=== PATIENT | male | born 1975 | race Caucasian/White ===

== ENCOUNTER 2018-12-26 20:21 | Inpatient (IN) ==
[2018-12-26 20:54] LABS: BILIRUBIN URINE NEGATIVE (NEGATIVE); BLOOD URINE 2+ (NEGATIVE); CLARITY CLEAR (CLEAR); COLOR YELLOW; GLUCOSE URINE NEGATIVE (NEGATIVE); KETONE URINE 3+(Large) mg/dL (NEGATIVE); LEUKOCYTES URINE TRACE (NEGATIVE); NITRITE URINE NEGATIVE (NEGATIVE); PROTEIN URINE 1+(30 mg/dL) mg/dL (NEGATIVE); SP GRAVITY URINE 1.015; UROBILINOGEN URINE NORMAL
[2018-12-26 21:09] LABS: URINE BACTERIA NEGATIVE /HFP; URINE EPITHELIAL CELLS <10 /HPF (<10); URINE RBC <10 /HPF (<10); URINE WBC <10 /HPF (<10)
[2018-12-26 21:10] LABS: URINE SOURCE CLEAN CATCH
[2018-12-26 21:13] LABS: UR AMPHETAMINES QUAL NONE DETECTED (NONE DETECT); UR BARBITUATES QUAL NONE DETECTED (NONE DETECT); UR BENZODIAZEPIN QUAL NONE DETECTED (NONE DETECT); UR CANNABINOIDS QUAL NONE DETECTED (NONE DETECT); UR COCAINE QUAL NONE DETECTED (NONE DETECT); UR METHADONE QUAL NONE DETECTED (NONE DETECT); UR METHAMPHETAMINE QUAL NONE DETECTED (NONE DETECT); UR OPIATES QUAL NONE DETECTED (NONE DETECT); UR OXYCODONE QUAL NONE DETECTED (NONE DETECT); UR PCP QUAL NONE DETECTED (NONE DETECT); UR PROPOXYPHENE QUAL NONE DETECTED (NONE DETECT); UR TCA QUAL NONE DETECTED (NONE DETECT)
--- NOTE | 2018-12-26 21:24 | PROVIDER DOCUMENTATION ---
HPI-Psychological Disorder - General Chief Complaint: Psych Stated Complaint: SI Time Seen by Provider: 12/26/18 21:12 Allergies/Adverse Reactions: Patient Allergies Allergy/AdvReac Type Severity Reaction Status Date / Time Penicillins Allergy Intermediate HIVES Verified 03/13/15 14:06 Home Medications: Home Medication List Medication Instructions Recorded Confirmed Last Taken Type Quetiapine Fumarate [Seroquel] 300 mg PO HS 08/25/18 12/26/18 08/21/18 16:00 History 300mg po Duloxetine [Cymbalta] 60 mg PO QAM #30 cap 08/29/18 12/26/18 Unknown Rx Fluticasone 50 Mcg Nasal [place] 2 spray PARMJIT BID #1 bottle 08/29/18 12/26/18 Unknown Rx [Flonase] Gabapentin [Neurontin] 300 mg PO BID #60 cap 08/29/18 12/26/18 Unknown Rx Lamotrigine [Lamictal] 150 mg PO BID #90 tab 08/29/18 12/26/18 Unknown Rx Metoprolol [Lopressor] 50 mg PO BID #60 tab 08/29/18 12/26/18 Unknown Rx Pantoprazole [Protonix] 40 mg PO DAILY@0700 #30 tab 08/29/18 12/26/18 Unknown Rx Aspirin 1 tab PO DAILY 12/26/18 12/26/18 Unknown History Buspirone HCl 1 tab PO BID 12/26/18 12/26/18 Unknown History Escitalopram [Lexapro] 1 tab PO DAILY 12/26/18 12/26/18 Unknown History Propranolol [Inderal] 20 mg PO BID 12/26/18 12/26/18 Unknown History Quetiapine [Seroquel] 200 mg PO QHS 12/26/18 12/26/18 Unknown History - History of Present Illness-Psych Nature of Presenting Problem: Pt comes to the Er today tearful and upset saying that he wants to kill himself with no specific plan. Pt admits that he hasnt been on his bipolar meds for the past week because he was feeling well. Pt is also upset because his partner told him he was HIV positive 2 weeks ago. Onset/Duration: reports: 2 days ago Timing: reports: still present Severity: reports: moderate Situational problems related to:: reports: significant other Psychiatric Complaints: reports: anxiety, depressed, impaired concentration, suicidal ideation Substance Use: reports: denies Previous psych related hospitalizations?: Yes Patient arrived by:: private car Similar Symptoms Previously?: Yes Recently seen or treated by another doctor?: No - Suicidal Ideation Suicide Risk Assessment: male sex, bi-polar Clinician's estimation of suicide risk?: high risk Review of Systems - Adult - REVIEW OF SYSTEMS - ADULT Constitutional: reports: no symptoms reported, see HPI Eyes: reports: no symptoms reported, see HPI Ears, Nose, Mouth & Throat: reports: no symptoms reported, see HPI Cardiovascular: reports: no symptoms reported, see HPI Respiratory: reports: no symptoms reported, see HPI Gastrointestinal: reports: no symptoms reported, see HPI Genitourinary: reports: no symptoms reported, see HPI Musculoskeletal: reports: no symptoms reported, see HPI Integumentary: reports: no symptoms reported, see HPI Neurological: reports: no symptoms reported, see HPI Psychiatric: reports: anxiety, anti-depressant use, depression, suicidal thoughts Endocrine: reports: no symptoms reported, see HPI Hematologic/Lymphatic: reports: no symptoms reported, see HPI Allergic/Immunologic: reports: no symptoms reported, see HPI All Other Systems: Reviewed and Negative Past History - Adult - PAST MEDICAL HISTORY-ADULT Review of Records: reports: Nursing Assessment Review, Medications Reviewed, Social history reviewed & non-contributory. Major Childhood Illnesses: reports: denies history Cardiovascular: reports: HTN Respiratory: reports: denies history Gastrointestinal: reports: Crohn's, GERD Obstetrical/Gynecological: reports: denies history Genitourinary: reports: denies history Musculoskeletal: reports: denies history Neurological: reports: denies history Psychiatric: reports: anxiety, bipolar, psychiatric problems, suicide attempt Endocrine/Immune: reports: denies history Other Conditions: reports: denies history - PRIOR SURGERIES/PROCEDURES Surgical/Procedure History: reports: reviewed, not pertinent, other (cyst removal) - IMMUNIZATION STATUS Childhood Immunizations: See Nurse Assessment Flu Vaccine: See Nurse Assessment - FAMILY HISTORY Family History: reviewed, not pertinent Physical Exam-Psych Focus - Physical Exam-Psych Initial Vital Signs Reviewed: Yes Appearance: anxious, impaired insight Neurological: alert, oriented x 3, anxious, depressed affect Behavior/Eye Contact/Speech: cooperative, good eye contact, normal speech Thoughts/Hallucinations: normal thought pattern, no apparent hallucination HENMT: normocephalic/atraumatic, moist mucous membranes Neck: non-tender, full range of motion, supple, normal inspection Respiratory: chest non-tender, lungs clear, normal breath sounds, no pleuratic chest pain, no respiratory distress, no accessory muscle use Cardiovascular: normal peripheral pulses, regular rate, rhythm, no edema, no gallop, no JVD, no murmur Abdominal Exam: normal bowel sounds, non tender, soft, no organomegaly, no pulsatile mass Lymphatic: no adenopathy Back Exam: normal inspection, no CVA tenderness, no vertebral tenderness Extremity: normal range of motion, non-tender, normal gait, normal inspection, no pedal edema, no calf tenderness, normal capillary refill Integumentary: normal color, normal turgor, warm/dry Progress - PLAN OF CARE/RESULTS Progress/Plan/Lab Results: Vital Signs - 8 hr 12/27/18 19:55 12/27/18 23:46 12/28/18 00:07 Temperature 97.2 F L Pulse Rate 87 147 H 150 H Respiratory Rate 18 17 Blood Pressure 135/087 120/69 O2 Sat by Pulse Oximetry 98 99 12/28/18 00:46 Temperature Pulse Rate 151 H Respiratory Rate 20 Blood Pressure 96/66 O2 Sat by Pulse Oximetry Laboratory Results - last 24 hr 12/26/18 12/27/18 21:34 14:25 Plasma/Serum Ethyl Alc HIV 1&2 Antibody Screen SEE COMMENTS Orders Category Date Time Status ALCOHOL BLOOD Stat Lab 12/26/18 21:34 Completed ALCOHOL BLOOD Stat Lab 12/27/18 02:00 Completed ALCOHOL BLOOD Stat Lab 12/27/18 14:25 Completed CBC WITH ELECTRONIC DIFF [HEME] Stat Lab 12/26/18 21:34 Completed COMPREHENSIVE METABOLIC PANEL [CHEM] Stat Lab 12/26/18 21:34 Completed FREE T4 Stat Lab 12/26/18 21:34 Completed HIV AB SCREEN [HH] Stat Lab 12/26/18 21:34 Completed TSH Stat Lab 12/26/18 21:[address] W/POSS RFLX CULT [URINALYSIS] Stat Lab 12/26/18 20:30 Completed URINE CULTURE [RM] Routine Lab 12/26/18 21:10 [address] S[address]EN [address] Stat Lab 12/26/18 20:30 Completed VITAMIN B12 Stat Lab 12/26/18 21:34 Completed 0.9% Sodium Chloride Inj [Ns] 1,000 ml Med 12/27/18 23:43 Discontinued IV 999 mls/hr 0.9% Sodium Chloride Inj [Ns] 1,000 ml Med 12/27/18 23:45 Discontinued IV 999 mls/hr 0.9% Sodium Chloride Inj [Ns] 1,000 ml Med 12/28/18 00:43 Discontinued IV 999 mls/hr 0.9% Sodium Chloride Inj [Ns] 1,000 ml Med 12/28/18 01:31 Discontinued IV 999 mls/hr 0.9% Sodium Chloride Inj [Ns] 1,000 ml Med 12/28/18 01:32 Discontinued IV 999 mls/hr 0.9% Sodium Chloride Inj [Ns] 1,000 ml Med 12/27/18 23:42 Discontinued IV Wide Open mls/hr 0.9% Sodium Chloride Inj [Ns] 2,000 ml Med 12/27/18 23:39 Discontinued .ROUTE As directed Hydroxyzine Med 12/27/18 03:03 Discontinued 50 mg IM NOW ONE Hydroxyzine Med 12/27/18 20:06 Discontinued 50 mg IM NOW ONE Lido/Aden Alk/Al&mg Hydrox [G.i. Cocktail] Med 12/27/18 05:09 Discontinued 30 ml PO NOW ONE Lorazepam [Ativan] Med 12/26/18 21:38 Discontinued 1 mg IM NOW ONE Lorazepam [Ativan] Med 12/27/18 23:57 Discontinued 2 mg .ROUTE .STK-MED ONE Lorazepam [Ativan] Med 12/27/18 23:58 Discontinued 2 mg IV NOW ONE Lorazepam [Ativan] Med 12/28/18 00:29 Discontinued 2 mg IV NOW ONE Ondansetron Odt [Zofran Odt] Med 12/27/18 22:43 Discontinued 4 mg .ROUTE .STK-MED ONE Ondansetron Odt [Zofran Odt] Med 12/27/18 22:44 Discontinued 4 mg PO NOW ONE Ondansetron [Zofran] Med 12/27/18 13:44 Discontinued 8 mg IM NOW ONE Pantoprazole [Protonix] Med 12/27/18 12:13 Discontinued 40 mg PO NOW ONE Quetiapine [Seroquel] Med 12/27/18 02:12 Discontinued 100 mg PO NOW ONE EKG [EKG] Stat Ther 12/26/18 20:35 Ordered EKG [EKG] Stat Ther 12/28/18 00:00 Ordered Result Diagrams: 12/26/18 21:34 12/26/18 21:34 - REASSESSMENT Reassessment #1 Time Reassessed: 23:42 (bed has been found, but now is tachycardic (120s) NSR, but assymptomatic so giving IVF bolus) Status: improving Reassessment #2 Time Reassessed: 00:30 (pt has told nurse that drinks 2 fifths of whiskey a day. Beginning benzos. He is awake, calm. Admits that has been seeing crickets all day. BP is actually low, not hypertensive) Reassessment #3 Time Reassessed: 03:10 (still tachycardic, hpotensive, more confused. Will admit for DTs) Status: worsening - CONSULTS/PCP/HOSPITALIST Notification #1 *Consult/PCP/Hospitalist*: Gilliam Time Discussed: 03:12 Consult Disposition: Admit - CHANGE OF SHIFT REPORT (ED Provider) 1 Report Given and Care Transferred to:: Dr Alonso Time of Transfer: 07:00 Items Pending: Labs, XRAY Results 2 Report Given and Care Transferred to:: Young Time of Transfer: 19:00 Items Pending: Other (awaiting for placement and transfer) Departure - Departure Date of Disposition Decision: 12/28/18 Time of Disposition Decision: 03:12 DIAGNOSIS: Suicidal ideations, Delirium tremens Disposition: ADMITTED INPATIENT 09 Certified Medical Emergency: Emergent Condition: Fair Referrals and Follow-Ups: None,PCP [Primary Care Provider] - - Critical Care Note This patient required my direct & personal management of CC.: No Attestation - Physician/ ANAYA Attestation Patient care was provided by Advanced Practice Provider:: No The physician spent face to face time with patient:: Yes Advanced Practice Provider documentation review:: Supervising physician onsite and consulted in the evaluation and care of this patient. The physician did have a face to face encounter with the patient.
[2018-12-26] MEDS ORDERED: ATIVAN IM ONE (21:38)
[2018-12-26 21:45] LABS: BASO# 0.02 X1000 (0.0-0.2); BASO% 0.2 % (0.0-0.8); EOS# 0.03 X1000 (0.0-0.7); EOS% 0.3 % (0.0-10.0); HEMOGLOBIN 15.1 g/dL (14.0-18.0); IMM GRAN# 0.02 X1000 (0.0-0.04); IMM GRAN% 0.2 % (0.0-0.5); LYMPH# 2.18 X1000 (1.2-3.4); LYMPH% 22.7 % (20.5-51.1); MCH 30.8 PG (27-31); MCHC 35.1 g/dL (33-37); MCV 87.8 FL (81-99); MONO# 0.67 X1000 (0.11-0.59); MPV 8.3 FL (7.4-10.4); NEUT# 6.67 X1000 (1.4-6.5); NEUT% 69.6 % (42.2-75.2); PLT 308 X1000 (130-400); RDW 15.1 % (11.5-14.5); WBC 9.59 X1000 (4.8-10.8)
[2018-12-26 22:12] LABS: AGAP 22; ALBUMIN 4.4 g/dL (3.5-5.0); ALKALINE PHOSPHATASE 86 U/L (32-122); BUN 8 mg/dL (8-22); CALCIUM 8.5 mg/dL (8.8-10.2); CHLORIDE 98 mmol/L (98-107); COSMO 279; CREATININE 0.7 mg/dL (0.7-1.2); ESTIMATED GFR > 60; GLUCOSE 88 mg/dL (70-104); GOT 38 U/L (10-34); GPT 30 U/L (10-44); POTASSIUM 3.9 mmol/L (3.5-5.1); SODIUM 141 mmol/L (136-145); TCO2 22 mmol/L (25-35)
[2018-12-26 22:40] LABS: FREE T4 0.92 ng/dL (0.93-1.70); TSH 1.54 uIUmL (0.27-4.20)
[2018-12-27] MEDS ORDERED: SEROQUEL PO ONE (02:12)
[2018-12-27] MEDS ORDERED: HYDROXYZINE IM ONE ×2 (03:03→20:06)
[2018-12-27] MEDS: G.I. COCKTAIL PO ONE ×2 (05:09→06:40)
[2018-12-27] MEDS ORDERED: PROTONIX PO ONE (12:13)
[2018-12-27] MEDS ORDERED: ZOFRAN IM ONE (13:44)
[2018-12-27 20:04] LABS: HIV ANTIBODY SCREEN SEE COMMENTS
[2018-12-27] MEDS ORDERED: ZOFRAN ODT ONE (22:43)
[2018-12-27] MEDS ORDERED: ZOFRAN ODT PO ONE (22:44)
[2018-12-27] MEDS ORDERED: NS 2,000 ML ONE (23:39)
[2018-12-27] MEDS ORDERED: NS 1,000 ML IV ONE ×3 (23:42→23:45)
[2018-12-27] MEDS ORDERED: ATIVAN ONE (23:57)
[2018-12-27] MEDS ORDERED: ATIVAN IV ONE (23:58)
[2018-12-28] MEDS ORDERED: ATIVAN IV ONE (00:29)
--- NOTE | 2018-12-28 00:30 | ED EKG INTERP ---
This chart was entered by Leda Hernandes Scribe, acting as scribe for Daniel Vidal MD. EKG Interpretation - EKG Time of EKG reading by physician:: 23:35 EKG Read and Signed by:: Daniel Vidal EKG Interpretation (*Must complete 3 of following elements*): Abnormal Rate: 152 Rhythm: tachycardia [place]: normal QRS: normal ME Interval: normal ST Wave: normal Attestation - Physician/ ANAYA Attestation The physician spent face to face time with patient:: Yes Advanced Practice Provider documentation review:: Supervising physician onsite and consulted in the evaluation and care of this patient. The physician did have a face to face encounter with the patient. This chart was documented by the indicated scribe, (Leda Hernandes Scribe) and accurately reflects the services I performed and decisions made by me, Daniel Vidal MD, as attested by the provider's signature.
[2018-12-28] MEDS ORDERED: NS 1,000 ML IV ONE ×4 (00:43→03:13)
[2018-12-28] MEDS ORDERED: LIBRIUM PO ONE (03:09)
[2018-12-28] MEDS ORDERED: ZOFRAN IV PRN (03:13)
[2018-12-28] MEDS: ATIVAN IV PRN ×2 (04:16→21:16)
[2018-12-28] MEDS ORDERED: LOPRESSOR PO ONE (04:52)
[2018-12-28] MEDS ORDERED: NICODERM PATCH TD ONE (04:53)
[2018-12-28] MEDS ORDERED: LIBRIUM PO SCH (05:00)
[2018-12-28] MEDS: TYLENOL PO PRN ×2 (05:05→21:35)
--- NOTE | 2018-12-28 07:26 | EKG Report ---
Test Performed on : 12/27/2018 11:34:01 PM Test Reason : heart rate e Blood Pressure : / mmHG Vent. Rate : 152 BPM Atrial Rate : 152 BPM P-R Int : 176 ms QRS Dur : 084 ms QT Int : 266 ms P-R-T Axes : 000 059 067 degrees QTc Int : 422 ms Sinus tachycardia. Otherwise normal ECG When compared with ECG of 27-DEC-2018 20:55, (Unconfirmed) ST no longer depressed in Inferior leads Unconfirmed Result
--- NOTE | 2018-12-28 07:26 | EKG Report ---
Test Performed on : 12/27/2018 8:55:24 PM Test Reason : psych screening Blood Pressure : / mmHG Vent. Rate : 147 BPM Atrial Rate : 147 BPM P-R Int : 120 ms QRS Dur : 080 ms QT Int : 284 ms P-R-T Axes : 000 065 080 degrees QTc Int : 444 ms Sinus tachycardia. Nonspecific ST abnormality Abnormal ECG When compared with ECG of 26-AUG-2018 12:38, Vent. rate has increased BY [address] now depressed in Inferior leads ST now depressed in Lateral leads Unconfirmed Result
[2018-12-28] MEDS: LOPRESSOR PO SCH ×2 (09:55→21:16)
[2018-12-28] MEDS: NICODERM PATCH TD SCH (09:55)
[2018-12-28] MEDS ORDERED: BENTYL PO PRN (11:24)
[2018-12-28] MEDS ORDERED: ROBAXIN PO PRN (11:24)
[2018-12-28] MEDS ORDERED: SALINE LOCK IV FLUID XX ONE (11:24)
[2018-12-28] MEDS ORDERED: M.V.I.-12 10 ML, FOLIC ACID 1 MG, MAGNESIUM SULFATE 1 GM, THIAMINE 100 MG in NS 1,000 ML IV ONE (12:00)
[2018-12-28] MEDS: LIBRIUM PO SCH ×3 (12:05→23:18)
--- NOTE | 2018-12-28 12:09 | HISTORY AND PHYSICAL ---
CHIEF COMPLAINT: Suicidal ideation, alcohol intoxication. HISTORY OF PRESENT ILLNESS: This is a 43-year-old gentleman with a history of bipolar disorder, PTSD, and prior suicide attempt. He presents to the emergency room via EMS reportedly calling them stating that he wants to kill himself. At 1 time he stated he had no specific plan. Another entry into the chart states that he stated he was going to take extra pills. He did state that he has been off his bipolar medications for the past week because he was feeling well and did not feel that he needed them. He did state that his partner told him that he was HIV positive 2 weeks ago. He has had increased anxiety since. PAST MEDICAL HISTORY: 1. Bipolar disorder type 1. 2. PTSD. 3. Hypertension. 4. Crohn's. 5. Gastroesophageal reflux disease. 6. Chronic alcohol use. 7. Peripheral neuropathy of both feet, likely related to alcohol use. 8. Aspiration pneumonia in 2018. 9. Prior suicide attempt. PAST SURGICAL HISTORY: Cepacia cyst removed from scrotum 6 to 7 years ago. SOCIAL HISTORY: He does drink daily. He does smoke about a pack a day. He denies any illicit drug use. ALLERGIES: Penicillin which causes hives. HOME MEDICATIONS: A list will be obtained by the nursing staff and once verified, we will restart it as appropriate. REVIEW OF SYSTEMS: Discussed with the patient. He denies any syncope, dizziness, any chest pain, palpitations, any cough, fever, chills, night sweats, shortness of breath, any nausea, vomiting, diarrhea, constipation, black or bloody vomitus or stools, any hematuria, dysuria, frequency, urgency. PHYSICAL EXAMINATION: GENERAL: This is a 43-year-old gentleman who is lying on the bed in ICU in no distress. VITAL SIGNS: Blood pressure is 100/80 with a heart rate of 120, respirations are 18, temperature is 99.1 degrees temporal with room air saturations 96-98%. EYES: Pupils are equal, round, react to light. EOMs are intact. Sclerae anicteric. HEENT: Head is normocephalic, atraumatic. Mucous membranes are moist. NECK: Supple with trachea midline. He has no JVD. CARDIOVASCULAR: Regular rate and rhythm. He is tachycardic. S1 and S2 appreciated. He has no lower extremity edema with peripheral pulses palpable x4 extremities. PULMONARY: Breath sounds are clear with no increased work of breathing noted. GASTROINTESTINAL: Abdomen soft, nontender, nondistended. Bowel sounds in all 4 quadrants. GENITOURINARY: He does have a Ferris draining to bedside bag. Urine is clear, yellow. SKIN: Warm and dry. LABORATORY: WBC is 9.5 with hemoglobin 15.1, hematocrit 43 and platelets of 308,000. Sodium 141, potassium 3.9, BUN 8, creatinine 0.7 with a glucose of 88. TSH is 1.54 with a free T4 0.92. Urinalysis is essentially negative. Urine drug screen reveals none detected. Blood alcohol at 9:30 on the was 271, at 2 a.m., on the 170 and at 2:25 p.m. on the is none detected. EKG reveals sinus tachycardia at a rate of 140. ASSESSMENT AND PLAN: 1. Suicidal ideation. 2. Alcohol intoxication. 3. Delirium tremors with visual hallucinations. The patient has been seeing crickets. 4. Alcohol withdrawal. 5. Gastroesophageal reflux disease. 6. Hypertension. 7. Bipolar disorder type 1. 8. Suicidal ideation. PLAN: The patient was previously evaluated by [facility] and according to the chart, he had been accepted to [facility], although it was felt that the patient was going through alcohol withdrawal and DTs. Therefore, the patient needed to be stabilized before they would allow him to be transferred. He was transferred to ICU for close monitoring. We will continue with telemetry. We will give a banana bag. We will give Robaxin and Bentyl for muscle aches and cramps, hydroxyzine for anxiety. We will place him on a high-dose Librium taper. We will get a CBC, CMP and magnesium now. We will repeat a CBC and CMP and magnesium in the morning. Continue with neuro checks. Further treatments pending hospital course. Dictated by NJ Lora for Hussein Jacobson MD This chart was documented by, NJ Lora and accurately reflects the services performed, treatment plan and medical decisions as attested by the providers signature Hussein Jacobson MD. cc: NJ Lora MD
[2018-12-28 12:28] LABS: AGAP 11; ALKALINE PHOSPHATASE 58 U/L (32-122); BUN 5 mg/dL (8-22); CALCIUM 7.7 mg/dL (8.8-10.2); CHLORIDE 104 mmol/L (98-107); COSMO 275; CREATININE 0.5 mg/dL (0.7-1.2); ESTIMATED GFR > 60; GLUCOSE 99 mg/dL (70-104); GOT 41 U/L (10-34); GPT 28 U/L (10-44); MAGNESIUM 1.8 mg/dL (1.5-2.7); POTASSIUM 3.7 mmol/L (3.5-5.1); SODIUM 139 mmol/L (136-145); TCO2 24 mmol/L (25-35); TOTAL PROTEIN 5.1 g/dL (6.3-8.3)
--- NOTE | 2018-12-28 17:50 | EKG Report ---
Test Performed on : 12/28/2018 4:20:12 PM Test Reason : recheck Blood Pressure : / mmHG Vent. Rate : 119 BPM Atrial Rate : 144 BPM P-R Int : 000 ms QRS Dur : 068 ms QT Int : 310 ms P-R-T Axes : 064 064 055 degrees QTc Int : 436 ms Undetermined rhythm Otherwise normal ECG When compared with ECG of 27-DEC-2018 23:34, (Unconfirmed) Current undetermined rhythm precludes rhythm comparison, needs review Non-specific change in ST segment in Inferior leads Unconfirmed Result
[2018-12-28] MEDS: ATARAX PO PRN (21:16)
[2018-12-28] MEDS: PRILOSEC PO SCH (21:16)
--- NOTE | 2018-12-29 00:01 | HISTORY AND PHYSICAL ---
ADDENDUM: Patient seen and examined by myself. Full note dictated and discussed with nurse practitioner. The patient overall is improving. Still is exhibiting symptoms of depression, however, alcohol withdrawal has improved. We will continue patient in the hospital, continue high- dose Librium taper and we will follow. cc: Hussein Jacobson MD
[2018-12-29] MEDS: ATIVAN IV PRN ×2 (01:53→15:32)
[2018-12-29] MEDS: LIBRIUM PO SCH ×4 (05:40→23:21)
[2018-12-29] MEDS: PRILOSEC PO SCH ×2 (06:06→20:07)
[2018-12-29 06:10] LABS: HEMATOCRIT 39.1 % (42.0-52.0); HEMOGLOBIN 13.4 g/dL (14.0-18.0); MCH 30.7 PG (27-31); MCHC 34.3 g/dL (33-37); MCV 89.7 FL (81-99); MPV 9.9 FL (7.4-10.4); RBC 4.36 XMIL (4.7-6.1); RDW 14.8 % (11.5-14.5); WBC 4.53 X1000 (4.8-10.8)
[2018-12-29 06:27] LABS: AGAP 9; ALBUMIN 2.9 g/dL (3.5-5.0); ALKALINE PHOSPHATASE 57 U/L (32-122); BUN 4 mg/dL (8-22); CALCIUM 7.9 mg/dL (8.8-10.2); CHLORIDE 108 mmol/L (98-107); COSMO 278; CREATININE 0.7 mg/dL (0.7-1.2); ESTIMATED GFR > 60; GLUCOSE 90 mg/dL (70-104); GOT 43 U/L (10-34); GPT 34 U/L (10-44); MAGNESIUM 1.8 mg/dL (1.5-2.7); POTASSIUM 3.6 mmol/L (3.5-5.1); SODIUM 141 mmol/L (136-145); TCO2 24 mmol/L (25-35); TOTAL PROTEIN 5.2 g/dL (6.3-8.3)
[2018-12-29] MEDS ORDERED: SODIUM CHLORIDE 0.9% INJ SCH (07:30)
[2018-12-29] MEDS: PROTONIX IV SCH ×2 (09:09→20:05)
[2018-12-29] MEDS: BENTYL PO SCH ×3 (09:10→20:06)
[2018-12-29] MEDS: LOPRESSOR PO SCH ×2 (09:10→20:07)
[2018-12-29] MEDS: NICODERM PATCH TD SCH (09:10)
--- NOTE | 2018-12-29 09:13 | EKG Report ---
Test Performed on : 12/29/2018 07:36:08 AM Test Reason : abnl ekg Blood Pressure : / mmHG Vent. Rate : 105 BPM Atrial Rate : 340 BPM P-R Int : 000 ms QRS Dur : 072 ms QT Int : 286 ms P-R-T Axes : 057 050 049 degrees QTc Int : 377 ms Atrial flutter. with variable AV block. Abnormal ECG When compared with ECG of 28-DEC-2018 16:20, (Unconfirmed) Previous ECG has undetermined rhythm, needs review Unconfirmed Result
[2018-12-29 14:42] LABS: ACETAMINOPHEN < 1.2 ug/mL (10-30); SALICYLATES < 3.00 mg/dL (3-10)
[2018-12-29] MEDS: ATARAX PO PRN (16:37)
[2018-12-29] MEDS: LAMICTAL PO SCH (20:05)
[2018-12-29] MEDS: NEURONTIN PO SCH (20:06)
[2018-12-29] MEDS: SEROQUEL PO SCH (20:06)
--- NOTE | 2018-12-29 23:35 | PROGRESS NOTE ---
DATE: 12/29/2018 SUBJECTIVE: Patient is much more awake and alert today. However, he still has multiple complaints. States that he is nauseated, anxious, nervous, stressed, worried, depressed. States that everybody in his family currently has a brain tumor and therefore he needs imaging. States that he needs anything IV that he can get it. He is asking for Ativan, Xanax or something else IV. States that he is always nervous, worried, anxious and needs something that is going to stop all of those symptoms. PHYSICAL EXAMINATION: Vital Signs: Temperature 99 degrees, pulse 88, respiratory 18, BP 105/72. General: Patient is awake, alert. He currently is in no respiratory distress. HEENT: Normocephalic. Neck: Supple. CARDIOVASCULAR: Regular rate. Chest: Clear. Abdomen: Soft, nondistended. Extremities: Moves all extremities. Neurologic: No changes. No tremors currently. He is much more awake, alert, oriented. ASSESSMENT: 1. Suicidal ideations. 2. Alcohol intoxication. 3. Delirium tremens with visual hallucinations, appears to be improved. 4. Acute alcohol withdrawal. 5. Hypertension. 6. Bipolar. PLAN: Discussed with patient that he is exhibiting no signs of brain tumors. Discussed that although hydroxyzine can help slightly with anxiety, there is no fix for anxiety medication astorga and that we will not give him hydroxyzine IV nor we will use Ativan, Xanax, or anything else that he can think of that he would like IV. Discussed that he desperately needs to consider further treatment for his depression to include counseling. We will keep in the ICU today and hopefully move out over the next day or 2. Continue to wean Librium. Further orders as needed. cc: Hussein Jacobson MD
[2018-12-30] MEDS: ATARAX PO PRN (02:43)
[2018-12-30] MEDS: BENTYL PO SCH ×4 (02:43→19:41)
[2018-12-30] MEDS: ATIVAN IV PRN ×4 (02:44→21:35)
[2018-12-30] MEDS: PRILOSEC PO SCH (06:40)
[2018-12-30] MEDS: LIBRIUM PO SCH ×4 (06:40→17:55)
--- NOTE | 2018-12-30 08:56 | ECHO REPORT ---
ORDER DATE: 12/29/2018 MEASUREMENTS: Left ventricular internal diameter diastole 3.9, septal thickness 1.0, posterior wall thickness 0.9. Left ventricular internal diameter in systole 2.8. Left atrium 3.4, aortic root 3.4. SUMMARY: 1. Fair quality study. 2. Aortic valve is trileaflet and opens normally on 2-dimensional images. Peak gradient across the aortic valve is less than 10 mmHg. There is trace aortic regurgitation. Mitral, tricuspid, and pulmonic valves are without evidence of structural abnormality. There is trace tricuspid regurgitation. Aortic root is normal in size. 3. Normal left ventricular dimensions demonstrated. Estimated left ventricular ejection fraction appears to be at least 55%. No regional wall motion abnormalities are evident. Left atrium, right atrium, right ventricle are normal size with grossly preserved right ventricular systolic function. 4. No pericardial effusion. 5. Appearance of inferior vena cava suggests normal central venous pressure. 6. Irregular rhythm during study appears to be atrial fibrillation. cc: MD Peyton Denise CRNP Gregory S. Cheatham, MD
[2018-12-30] MEDS: PROTONIX IV SCH ×2 (09:17→19:41)
[2018-12-30] MEDS: LAMICTAL PO SCH ×2 (09:18→20:06)
[2018-12-30] MEDS: LOPRESSOR PO SCH ×2 (09:18→20:06)
[2018-12-30] MEDS: NEURONTIN PO SCH ×2 (09:18→20:06)
[2018-12-30] MEDS: ASPIRIN PO SCH (09:18)
[2018-12-30] MEDS: CYMBALTA PO SCH (09:19)
[2018-12-30] MEDS: NICODERM PATCH TD SCH (09:19)
--- NOTE | 2018-12-30 16:31 | Diag Imaging Result Doc PS360 ---
MRI BRAIN W/WO CONTRAST - 12/30/2018 INDICATION: AMS COMPARISON: Head CT 09/20/2018 FINDINGS: There is no restricted diffusion. The ventricles and sulci are normal in size and contour. No intracranial mass or hemorrhage. There is some minimal deep cerebral white matter hyperintensity compatible with gliosis. There is no area of abnormal contrast enhancement. Midline structures appear unremarkable. IMPRESSION: Minimal cerebral white matter gliosis, nonspecific. No acute disease. Electronically signed by Aurelio Heard 12/30/2018 4:29 PM
[2018-12-30] MEDS: SEROQUEL PO SCH (20:06)
--- NOTE | 2018-12-31 01:41 | PROGRESS NOTE ---
DATE: 12/30/2018 SUBJECTIVE: Patient again this morning is asking for anything and everything IV that he can have. He denies any fevers or chills. Denies any GI or issues otherwise. PHYSICAL EXAMINATION: Vital Signs: Temperature 98.4 degrees, pulse 76, respiratory 18, BP 94/62. General: Patient is in no current respiratory distress. HEENT: Normocephalic. Neck: Supple. Cardiovascular: Regular rate. Chest: Clear. Abdomen: Soft, obese, nondistended. Extremities: Moves all extremities. ASSESSMENT: 1. Suicidal ideation. 2. Acute alcohol intoxication. 3. Delirium tremens with visual hallucinations, appears to be improving. 4. Acute alcohol withdrawal. 5. Hypertension. 6. Bipolar. 7. Ventricular tachycardia. We have decreased his Toprol to 25 twice a day due to his blood pressure. We will continue to follow. PLAN: We will continue Librium taper. Further orders as needed. We will consult [facility] as he is clinically stable and could discharge to [facility]. If he is not cleared to go to [facility] then hopefully we can discharge him home in the next 24 hours. cc: Hussein Jacobson MD
[2018-12-31] MEDS: PROTONIX PO SCH ×2 (06:52→20:30)
[2018-12-31] MEDS: BENTYL PO SCH ×4 (06:53→23:22)
[2018-12-31 07:26] LABS: HEMATOCRIT 35.4 % (42.0-52.0); HEMOGLOBIN 11.6 g/dL (14.0-18.0); MCH 30.1 PG (27-31); MCHC 32.8 g/dL (33-37); MCV 91.9 FL (81-99); RBC 3.85 XMIL (4.7-6.1); RDW 15.3 % (11.5-14.5); WBC 6.06 X1000 (4.8-10.8)
[2018-12-31 07:31] LABS: AGAP 10; BUN 5 mg/dL (8-22); CALCIUM 8.4 mg/dL (8.8-10.2); CHLORIDE 107 mmol/L (98-107); COSMO 284; CREATININE 0.7 mg/dL (0.7-1.2); ESTIMATED GFR > 60; GLUCOSE 92 mg/dL (70-104); POTASSIUM 3.8 mmol/L (3.5-5.1); SODIUM 144 mmol/L (136-145); TCO2 27 mmol/L (25-35)
[2018-12-31] MEDS: NICODERM PATCH TD SCH (08:04)
[2018-12-31] MEDS: LAMICTAL PO SCH ×2 (08:04→20:29)
[2018-12-31] MEDS: NEURONTIN PO SCH ×2 (08:04→20:29)
[2018-12-31] MEDS: LIBRIUM PO SCH (08:05)
[2018-12-31] MEDS: CYMBALTA PO SCH (08:05)
[2018-12-31] MEDS: ASPIRIN PO SCH (08:05)
[2018-12-31] MEDS: LOPRESSOR PO SCH ×2 (08:05→20:30)
[2018-12-31] MEDS: ATIVAN IV PRN ×4 (11:24→23:22)
[2018-12-31] MEDS: ATARAX PO PRN ×2 (17:28→23:22)
[2018-12-31] MEDS: SEROQUEL PO SCH (20:30)
[2018-12-31] MEDS ORDERED: LIBRIUM PO SCH (21:00)
--- NOTE | 2019-01-01 00:34 | PROGRESS NOTE ---
DATE: 12/31/2018 SUBJECTIVE: Patient continues to have manipulative behavior. Continues to complain of depression, anxiety. PHYSICAL EXAMINATION: Vital Signs: Temperature 98.4 degrees, pulse 76, respiratory 18, BP 92/62. General: Patient is in no current respiratory distress. HEENT: Normocephalic. Neck: Supple. Cardiovascular: Regular rate. Chest: Clear. Abdomen: Soft. Extremities: Moves all extremities. ASSESSMENT: 1. Bipolar. 2. Posttraumatic stress disorder. 3. Chronic suicide ideations although he has no current plan. 4. Alcohol intoxication, resolved. 5. Delirium tremens, resolved. 6. Chronic reflux. 7. Hypertension. 8. Bipolar type 1. PLAN: The patient currently is stable. Unfortunately, he has been turned down by [facility], [facility] and [facility]. We will continue to attempt to find placement and we will follow. cc: Hussein Jacobson MD
[2019-01-01] MEDS: ATIVAN IV PRN ×2 (02:29→09:56)
[2019-01-01] MEDS: PROTONIX PO SCH ×2 (06:19→20:15)
[2019-01-01] MEDS: BENTYL PO SCH ×4 (06:19→20:14)
[2019-01-01] MEDS: NICODERM PATCH TD SCH (09:54)
[2019-01-01] MEDS: NEURONTIN PO SCH ×2 (09:55→20:15)
[2019-01-01] MEDS: TYLENOL PO PRN ×2 (09:55→16:34)
[2019-01-01] MEDS: CYMBALTA PO SCH (09:55)
[2019-01-01] MEDS: LOPRESSOR PO SCH ×2 (09:56→20:15)
[2019-01-01] MEDS: LAMICTAL PO SCH ×2 (09:56→20:15)
[2019-01-01] MEDS: ASPIRIN PO SCH (09:56)
--- NOTE | 2019-01-01 16:09 | PROGRESS NOTE ---
DATE: 01/01/2019 SUBJECTIVE: Patient notes that he still is having suicidal ideations. Notes that he has a plan, although states he does not want to have to carry it out. Does note that the world would be better off without him. States he is still seeing auditory and visual hallucinations. Medications do not seem to be helping this. PHYSICAL EXAMINATION: Vital Signs: Temperature 97.7, pulse 70, respiratory rate 18, BP 116/69. General: The patient is very pleasant to talk with. HEENT: Normocephalic. Neck: Supple. Cardiovascular: Regular rate. Chest: Clear and unlabored. Abdomen: Soft and nondistended. Extremities: Moves all extremities. ASSESSMENT: 1. Suicidal ideations. 2. Auditory and visual hallucinations. 3. History of Crohn's disease. 4. Headaches. 5. Bipolar. 6. Supraventricular tachycardia. 7. Chronic alcohol abuse. PLAN: Patient currently is medically stable, although he is still having some issues psychologically. We will keep him in the hospital presently. Discussed with patient that although he may be having some Crohn's flare, it would be quite unusual in that he has been in remission for 13 years and now he is having such a severe Crohn's flare that he is requiring pain medication, even though he is having no diarrhea, no melena or hematochezia. We will continue to attempt to find the appropriate psychiatric transfer and we will follow. cc: Hussein Jacobson MD
[2019-01-01] MEDS ORDERED: TORADOL IM ONE (17:35)
--- NOTE | 2019-01-01 19:27 | Diag Imaging Result Doc PS360 ---
EXAM: COCCYX/SACRUM INDICATION: fall TECHNIQUE: 3 views COMPARISON: None. FINDINGS: There is no discrete fracture or intrinsic osseous lesion identified involving the sacrum or coccyx. The SI joints are intact. Surrounding soft tissues are grossly unremarkable. IMPRESSION: No evidence of acute osseous abnormality by plain radiograph. Electronically signed by Chapo Lemus 01/01/2019 7:25 PM
[2019-01-01] MEDS: SEROQUEL PO SCH (20:15)
[2019-01-02] MEDS: BENTYL PO SCH ×4 (00:05→11:39)
[2019-01-02] MEDS: ATIVAN IV PRN (00:29)
[2019-01-02] MEDS: PROTONIX PO SCH ×2 (07:04→20:07)
[2019-01-02] MEDS: LAMICTAL PO SCH ×2 (09:06→20:07)
[2019-01-02] MEDS: ASPIRIN PO SCH (09:06)
[2019-01-02] MEDS: NICODERM PATCH TD SCH (09:06)
[2019-01-02] MEDS: ATARAX PO PRN ×3 (09:06→23:39)
[2019-01-02] MEDS: LOPRESSOR PO SCH ×2 (09:06→20:07)
[2019-01-02] MEDS: CYMBALTA PO SCH (09:06)
[2019-01-02] MEDS: NEURONTIN PO SCH ×2 (09:06→20:07)
--- NOTE | 2019-01-02 09:25 | EKG Report ---
Test Performed on : 12/30/2018 7:38:44 PM Test Reason : ROUTINE Blood Pressure : / mmHG Vent. Rate : 080 BPM Atrial Rate : 080 BPM P-R Int : 178 ms QRS Dur : 080 ms QT Int : 366 ms P-R-T Axes : 038 053 055 degrees QTc Int : 422 ms Poor data quality, interpretation may be adversely affected Normal sinus rhythm. Normal ECG When compared with ECG of 29-DEC-2018 07:36, (Unconfirmed) Sinus rhythm. has replaced Atrial flutter. Unconfirmed Result
[2019-01-02] MEDS: TYLENOL PO PRN (11:39)
[2019-01-02] MEDS ORDERED: BENTYL PO PRN (16:27)
--- NOTE | 2019-01-02 16:51 | PROGRESS NOTE ---
DATE: 01/02/2019 SUBJECTIVE: He seems to be doing okay. He came in with confusion, multiple issues, but he seems to be doing better. I do not feel like he is having any hallucinations at the moment when I examined him and, additionally, he does not seem to be confused. I do not think he has had any major labs recently, pretty unremarkable. In any case, problem #1 suicidal ideation and bipolar disease. He has talked about being on Abilify and changing to Lexapro from the Cymbalta. He had recently been placed on the Cymbalta. I am not quite sure why he had that previously, but in any case, and he feels like the Lamictal is not doing very much. We explained that would likely be helpful in relationship to his son but we will see. In any case, he seems to be doing okay and I do not appreciate he is having any more hallucinations. He is not describing a suicidal plan or ideation but we will continue to observe him. I have requested a psychiatric re-evaluation just to see if he still qualifies for inpatient but I that has not happened yet, but we will look at how he is doing tomorrow and then re-evaluate and maybe they can reassess him. I understand that he is not going to qualify because of his dual diagnosis status, but I think he could potentially qualify. He may be able to be transitioned to an outpatient and then discharge for further management. DISPOSITION: Pending inpatient psychiatric discussion. cc: MD Hussein Ferguson MD
[2019-01-02] MEDS: TORADOL IV PRN (17:18)
[2019-01-02] MEDS: BUSPAR PO SCH (20:07)
[2019-01-02] MEDS: SEROQUEL PO SCH (20:07)
[2019-01-03] MEDS: PROTONIX PO SCH ×2 (06:24→20:34)
[2019-01-03] MEDS ORDERED: BENTYL PO PRN (06:45)
[2019-01-03] MEDS: NICODERM PATCH TD SCH (08:11)
[2019-01-03] MEDS: LEXAPRO PO SCH (08:12)
[2019-01-03] MEDS: NEURONTIN PO SCH ×2 (08:12→20:35)
[2019-01-03] MEDS: ASPIRIN PO SCH (08:13)
[2019-01-03] MEDS: LAMICTAL PO SCH ×2 (08:13→20:35)
[2019-01-03] MEDS: BUSPAR PO SCH ×2 (08:14→20:35)
[2019-01-03] MEDS: LOPRESSOR PO SCH ×2 (08:14→20:35)
[2019-01-03] MEDS: TORADOL IV PRN (14:44)
[2019-01-03] MEDS: ATARAX PO PRN (15:03)
[2019-01-03] MEDS: HALDOL IM PRN (18:56)
--- NOTE | 2019-01-03 19:01 | PROGRESS NOTE ---
DATE: 01/03/2019 SUBJECTIVE: The patient has no major complaints today. He is a little sleepy today but no major issues. OBJECTIVE: Blood pressure is 113/84, heart rate 114, respiratory rate 16, temperature 98.1 degrees. Cardiovascular: Regular rate and rhythm. Pulmonary: Bilateral breath sounds. Clear to auscultation. GI: Soft, nontender, nondistended. Bowel sounds were positive. Extremity exam: No clubbing or cyanosis. Lymphatic exam: No peripheral edema. Neurological exam was nonfocal. LABORATORY DATA: No major issues. ASSESSMENT AND PLAN: 1. Suicidality with depression, bipolar. We are waiting on psychiatric placement, but he is clinically improving I think from a psychiatric standpoint. I am trying to get him re- evaluated to see if possible transition to outpatient. 2. Alcohol withdrawal syndrome that is completed, and he seems to be stabilizing. We will continue to follow closely. Hopefully discharge within the next 24 hours. cc: MD Hussein Ferguson MD
[2019-01-03] MEDS: SEROQUEL PO SCH (20:34)
[2019-01-04] MEDS: PROTONIX PO SCH (06:14)
[2019-01-04] MEDS: NEURONTIN PO SCH (09:09)
[2019-01-04] MEDS: LAMICTAL PO SCH (09:09)
[2019-01-04] MEDS: LOPRESSOR PO SCH (09:10)
[2019-01-04] MEDS: LEXAPRO PO SCH (09:10)
[2019-01-04] MEDS: NICODERM PATCH TD SCH (09:10)
[2019-01-04] MEDS: BUSPAR PO SCH (09:11)
[2019-01-04] MEDS: ASPIRIN PO SCH (09:11)
[2019-01-04] MEDS: ATARAX PO PRN (15:33)
[2019-01-04] MEDS: HALDOL IM PRN (15:34)
[2019-01-04] MEDS ORDERED: KLONOPIN PO ONE (15:44)
[2019-01-04 15:49] VITALS: BP 124/72
--- NOTE | 2019-01-04 21:51 | DISCHARGE SUMMARY ---
ADMISSION DATE: 12/28/2018 DISCHARGE DATE: 01/04/2019 The patient is doing okay. No major complaints. I have seen in the last 3 days. He denies any suicidal ideation. He has no plan. He is alert and oriented. He is not confused. Discussed that he will need close follow up with his mental health worker as soon as possible. We have discussed with [facility]. They felt that he does not qualify for their program because he has a dual diagnosis. At this point I think he has completed withdrawal from alcohol. He is kind of aggressive about trying to get on benzodiazepines. We discussed that would not be an option with his addictive personality and issues, but he does not have any further suicidal ideation. His mental status is improved, so I feel comfortable discharging him on Seroquel 500. I switched him to Lexapro per his request. He has been on that before. He is on Lamictal 150 b.i.d., Neurontin 300 b.i.d., and Protonix 40. Seroquel will be 500. I am going to bump up his BuSpar to 15 b.i.d. and will encourage him to follow up. cc: Clarke Escalante MD
--- NOTE | 2019-01-04 21:59 | DISCHARGE SUMMARY ---
ADMISSION DATE: 12/28/2018 DISCHARGE DATE: 01/04/2019 PRIMARY CARE PHYSICIAN: NJ Thomas. ADMISSION DIAGNOSES: 1. Suicidal ideations. 2. Alcohol Intoxication. 3. Delirium tremors with visual hallucinations, seeing crickets. 4. Alcohol withdrawal. 5. Gastroesophageal reflux disease. 6. Hypertension. 7. Bipolar disorder, type 1. DISCHARGE DIAGNOSES: 1. Suicidality with bipolar depression. No longer suicidal and stable with no plan. 2. Alcohol withdrawal syndrome, resolved. 3. Delirium tremors with visual hallucinations, seeing crickets, resolved. 4. Gastroesophageal reflux disease. 5. Hypertension. 6. Bipolar disorder type 1. SUMMARY OF FINDINGS: This is a 43-year-old male, who presented to the emergency room via EMS after he reportedly called them stating that he wanted to kill himself, but had no specific plan stated initially. Then another entry stated that he wanted to take extra pills. Stated that he had been off his bipolar medication for approximately a week prior to arriving because he was feeling well and did not feel that he needed them. He also stated that his partner had told him that he was HIV positive 2 weeks prior and he had increased anxiety since then. During this hospitalization, he has also been very focused on receiving benzodiazepines and has been drug seeking. We have not given him those medications and we do not plan on giving him any at discharge. He was initially admitted to the intensive care unit. He was placed on high-dose Librium taper. He has been transferred out to the floor. We did do a brain MRI on 12/30/2018 that showed minimal cerebral white matter gliosis, nonspecific with no acute disease. We did an echocardiogram on 12/29/2018 that showed an ejection fraction of 55% with normal systolic function. We did a sacrum and coccyx x-ray on 01/01/2019 that showed no evidence of an acute osseous abnormality by plain radiograph. His urine culture showed no pathogenic growth. He was checked for HIV virus, A, B that was nonreactive. We did consult [facility] who did not feel the patient was appropriate for their facility due to his dual diagnosis. We have been unable to find him a placement with dual diagnosis treatment. At this time, the patient states that he is no longer feeling suicidal and does not have any type of plan to harm himself and so it is felt that he can now safely be discharged home. DISCHARGE MEDICATIONS: He got a prescription for BuSpar 15 mg p.o. b.i.d. #60 with 1 refill. Aspirin 81 mg p.o. daily. Neurontin 300 mg p.o. b.i.d., Lamictal 150 mg p.o. b.i.d., Seroquel 500 mg p.o. at bedtime. Lexapro 20 mg p.o. q.a.m. We stopped his Cymbalta. FOLLOWUP: He will need to follow up with his primary care physician in 1 to 2 weeks and call the office for an appointment. TIME SPENT: This is 35 minute discharge. Dictated by NJ Torre for Clarke Escalante MD cc: NJ Torre MD Anna M. Dumas, CRNP
== END 2019-01-04 18:18 | disposition home or self-care (01) | DRG 897 ==
LOC: P.ED 20:21 → SUATTDRO 12-28 03:38 → P.ICU 12-28 03:38 → P.MEDSURG 01-01 00:08
PROVIDERS: ATTEND Internal Medicine
CPT/HCPCS: 70553; 72220; 80048; 80053; 80104; 80196; 80301; 80305; 80307; 80320; 80324; 80329; 81001; 82003; 82055; 82607; 83735; 84439; 84443; 85025; 85027; 86701; 87088; 87389; 93005; 93306; 96361; 96372; 96374; 96376; 99285; A9270; A9579; C9113; G0431; G0434; G0477; G0480; G6038; G6039; G6040; J1630; J1885; J2060; J2405; J3410; J3411; J3475; J7030; S0164